=== PATIENT | female | born 1975 | race Caucasian/White ===

== ENCOUNTER 2016-10-07 23:26 | Emergency (ER) | payer SELFPAY ==
[~2016-10-07] VITALS: Ht 167.6 cm; Wt 81.6 kg
[2016-10-08] VITALS: BP 142/72
[2016-10-08] MEDS ORDERED: LORAZEPAM 1 MG TABLET. PO ONE
[2016-10-08] MEDS ORDERED: HYDR25TA PO (00:51)
--- NOTE | 2016-10-08 00:52 | PHYS DOC ---
Past Medical History Past Medical History: Anxiety Past Surgical History: No Surgical History Alcohol Use: None Drug Use: None Adult General Chief Complaint Chief Complaint: ANXIETY/PANIC ATTACK HPI HPI 40 yo F presenting to the ED for anxiety tonight. she reports taking xanax with moderate improvement. She denies chest pain shortness of breath. She feels mildly anxious. Onset tonight Location generalized Duration intermittent Alleviated was Xanax No specific timing present. Review of Systems Review of Systems ROS negative for chest pain shortness of breath nausea vomiting abdominal pain. All other review of systems is negative unless otherwise noted in history of present illness. Current Medications Current Medications Current Medications Medications (Trade) Dose Ordered Sig/Delisa Start Time Stop Time Status Last Admin Dose Admin Lorazepam (Ativan) 1 mg 1X ONCE 10/08/16 00:00 10/08/16 00:01 DC 10/07/16 23:55 1 MG Allergies Allergies Allergies Coded Allergies Type Severity Reaction Last Updated Verified No Known Drug Allergies 10/07/16 No Physical Exam Physical Exam Constitutional: Well developed, well nourished, no acute distress, non-toxic appearance. Patient feels mildly anxious. She is breathing comfortably in the exam room. HENT: Normocephalic, atraumatic, bilateral external ears normal, oropharynx moist, no oral exudates, nose normal. [] Eyes: PERRLA, EOMI, conjunctiva normal, no discharge. Neck: Normal range of motion, no tenderness, supple, no stridor. [] Cardiovascular:Heart rate regular rhythm, no murmur Lungs & Thorax: Bilateral breath sounds clear to auscultation [] Abdomen: Bowel sounds normal, soft, no tenderness, no masses, no pulsatile masses. [] Skin: Warm, dry, no erythema, no rash. Back: No tenderness, no CVA tenderness. [] Extremities: No tenderness, no cyanosis, no clubbing, ROM intact, no edema. Neurologic: Alert and oriented X 3, normal motor function, normal sensory function, no focal deficits noted. [] Psychologic: Affect normal, judgement normal, mood normal. [] Current Patient Data Vital Signs Vital Signs Date Time Temp Pulse Resp B/P Pulse Ox O2 Delivery O2 Flow Rate FiO2 10/08/16 00:00 90 24 142/72 96 Room Air 10/07/16 23:26 98.1 98.1 EKG EKG [] Radiology/Procedures Radiology/Procedures [] Course & Med Decision Making Course & Med Decision Making Pertinent Labs and Imaging studies reviewed. (See chart for details) [] 40-year-old female presenting to the emergency department today with a panic attack. On evaluation the patient was mildly anxious. She was in no distress. Vital signs showed a normal heart rate afebrile. Mild hypertension likely related to the patient's moving around and the hospital gurney and anxiousness. Respiratory rate increased as well secondary to anxiety. Physical exam was unremarkable otherwise. Patient was given Ativan in the emergency department which improved her symptoms. On reevaluation she is breathing comfortably and not in any distress. She was subsequently discharged home to follow up with her PCP over the next few days. She was asymptomatic upon second evaluation. Dragon Disclaimer Dragon Disclaimer This electronic medical record was generated, in whole or in part, using a voice recognition dictation system. Departure Departure Impression: Primary Impression: Anxiety attack Disposition: HOME, SELF-CARE Condition: STABLE Referrals: NO PCP (PCP) CORTEZ PINA MD Patient Instructions: Anxiety and Panic Attacks, Lxen-by-Fell Additional Instructions: Follow-up with : [facility] Address: [address] [place] [address] Thank you for allowing us to participate in your care today. Followup with your primary care physician in 3 days if your symptoms do not improve. If you do not have a primary care provider you can ask for a list of our primary care providers. Return to the emergency department you have any new or concerning findings. This should be evaluated by the primary care physician and any necessary consulting services for continued management within a few days after discharge. Return to emergency room if you have any new or concerning symptoms including but not limited to fever, chills, nausea, vomiting, intractable pain, any new rashes, chest pain, shortness of air, uncontrolled bleeding, difficulty breathing, and/or vision loss. You may have been prescribed medication that can change in your level of thinking and ability to operate machinery. These medications include hydrocodone and Ativan. Also, Benadryl has been known to do this as well. Be sure to check with your pharmacist and ask if the medications you've prescribed can affect your level of consciousness. I recommend not operating heavy machinery or driving while on medication such as these. Scripts Hydroxyzine Hcl 25 Mg Aakspn66 Mg PO PRN QHS PRN AGITATION #5 TAB Prov:ANTONIETTA NULL MD 10/08/16 ANTONIETTA NULL MD Oct 08, 2016 00:52
== END 2016-10-08 01:05 | disposition home or self-care (01) ==
LOC: ER 23:26
DX: F41.0 Panic disorder [episodic paroxysmal anxiety] (principal)
CPT/HCPCS: 99284

== ENCOUNTER 2017-03-26 12:09 | Emergency (ER) | payer MEDICAID, OTHER ==
[~2017-03-26] VITALS: Ht 167.6 cm; Wt 72.6 kg
[~2017-03-26 12:09] MED LIST: HYDR25TA PO
--- NOTE | 2017-03-26 13:12 | PHYS DOC ---
Past Medical History Past Medical History: Anxiety, Other Additional Past Medical Histor: PANIC ATTACKS Past Surgical History: No Surgical History Alcohol Use: None Drug Use: None Adult General Chief Complaint Chief Complaint: ANXIETY/PANIC ATTACK HPI HPI Patient is a 41 year old female who drove herself to the ED with a complaint of anxiety. She has had 2 panic attacks today at work. Patient states she has a history of panic attacks and anxiety. She does follow with a primary care physician and a counselor both in [place] for this diagnosis. She is on medications and she has not run out of her medications. She is using them as directed. She states that "my project engineering manager is a mean hateful person" and she has had interpersonal problems with her manager wealth management. She works as an tax revenue officer. She left work at lunch today and came to the ED. Since she has been resting in the room waiting to see me, the patient has been feeling much better without medication or other intervention. Meds Lexapro 40 mg daily, Xanax 1 mg 3 times a day when necessary for the last [address] Drummond Counselor Edwin Willard Review of Systems Review of Systems Constitutional: Denies fever or chills [] Eyes: Denies change in visual acuity, redness, or eye pain [] HENT: Denies nasal congestion or sore throat [] Respiratory: Denies cough or shortness of breath [] Cardiovascular: Denies chest pain GI: Denies abdominal pain, nausea, vomiting, bloody stools or diarrhea [] : Denies dysuria or hematuria [] Musculoskeletal: Denies back pain or joint pain [] Integument: Denies rash or skin lesions [] Neurologic: Denies headache, focal weakness or sensory changes [] Allergies Allergies Allergies Coded Allergies Type Severity Reaction Last Updated Verified No Known Drug Allergies 10/07/16 No Physical Exam Physical Exam Constitutional: Well developed, well nourished, no acute distress, non-toxic appearance. When I saw her, blood pressure 139/99, sat 94%, heart rate 79 HENT: Normocephalic, atraumatic, bilateral external ears normal, nose normal. [ ] Eyes: conjunctiva normal, no discharge. [] Neck: Normal range of motion, no stridor. [] Cardiovascular:Heart rate regular rhythm, no murmur [] Lungs & Thorax: Bilateral breath sounds clear to auscultation [] Skin: Warm, dry, no erythema, no rash. [] Extremities: No tenderness, no cyanosis, no clubbing, ROM intact, no edema. [] Neurologic: Alert and oriented X 3, normal motor function, normal sensory function, no focal deficits noted. [] Current Patient Data Vital Signs Vital Signs Date Time Temp Pulse Resp B/P (MAP) Pulse Ox O2 Delivery O2 Flow Rate FiO2 03/26/17 13:20 88 16 122/81 (95) 95 Room Air 03/26/17 12:20 98.4 98.4 EKG EKG [] Radiology/Procedures Radiology/Procedures [] Course & Med Decision Making Course & Med Decision Making Pertinent Labs and Imaging studies reviewed. (See chart for details) 41-year-old female with a history of panic attacks and anxiety who comes in with the complaint of exacerbation. The patient is already feeling better without treatment. We had quite a long talk about stimulants including caffeine and nicotine, I encouraged her to limit those. She does have a counselor and she has some good strategies in place to deal with her anxiety. She feels comfortable with discharge and has follow-up in place as well as medications at home. See instructions for plan. [] Dragon Disclaimer Dragon Disclaimer This electronic medical record was generated, in whole or in part, using a voice recognition dictation system. Departure Departure Impression: Primary Impression: Anxiety attack Disposition: 01 HOME, SELF-CARE Condition: STABLE Referrals: NO PCP (PCP) Patient Instructions: Anxiety and Panic Attacks, [id number] Additional Instructions: As we discussed, continue following up with your primary care physician and counselor as you are doing. As we discussed, try to limit your use of stimulating substances including caffeine and nicotine, which can contribute to your bodies feeling of anxiety by increasing your blood pressure and pulse. Today, drink plenty of fluids, eat a healthy lunch, try to get some moderate exercise outside in the fresh air and sunshine, get a good night sleep. MILLA RO MD Mar 26, 2017 13:12
[2017-03-26 13:20] VITALS: BP 122/81
== END 2017-03-26 13:27 | disposition home or self-care (01) ==
LOC: ER 12:09
DX: F41.9 Anxiety disorder, unspecified (principal); F41.0 Panic disorder [episodic paroxysmal anxiety]
CPT/HCPCS: 99284-25

== ENCOUNTER 2018-02-25 18:18 | Emergency (ER) | payer OTHER ==
[2018-02-25 18:56] LABS: ADD MAN DIFF? NO
[2018-02-25 18:59] LABS: BASO # 0.1 x10^3/uL (0.0-0.2); BASO % 1 % (0-3); EOS # 0.2 x10^3/uL (0.0-0.7); EOS % 2 % (0-3); HEMATOCRIT 40.5 % (36.0-47.0); HEMOGLOBIN 14.2 g/dL (12.0-15.5); LYMPH # 3.1 x10^3/uL (1.0-4.8); LYMPH % 38 % (24-48); MEAN CORPUSCULAR HEMOGLOBIN 32 pg (25-35); MEAN CORPUSCULAR HGB CONC 35 g/dL (31-37); MEAN CORPUSCULAR VOLUME 91 fL (79-100); MONO # 0.6 x10^3/uL (0.0-1.1); MONO % 7 % (0-9); NEUT # 4.2 x10^3uL (1.8-7.7); NEUT % 52 % (31-73); PLATELET COUNT 267 x10^3/uL (140-400); RED BLOOD COUNT 4.47 x10^6/uL (3.50-5.40); RED CELL DISTRIBUTION WIDTH 13.6 % (11.5-14.5); WHITE BLOOD COUNT 8.2 x10^3/uL (4.0-11.0)
[2018-02-25 19:14] LABS: ANION GAP 10 (6-14); BLOOD UREA NITROGEN 13 mg/dL (7-20); BUN/CREATININE RATIO 14 (6-20); CALCIUM 8.8 mg/dL (8.5-10.1); CARBON DIOXIDE 30 mmol/L (21-32); CHLORIDE 107 mmol/L (98-107); CREATININE 0.9 mg/dL (0.6-1.0); GFR 68.3; GLUCOSE 123 mg/dL (70-99); POTASSIUM 3.2 mmol/L (3.5-5.1); SODIUM 147 mmol/L (136-145)
[2018-02-25 19:16] LABS: ALBUMIN 3.2 g/dL (3.4-5.0); ALK PHOS 107 U/L (46-116); ALT (SGPT) 43 U/L (14-59); AST (SGOT) 24 U/L (15-37); TOTAL BILIRUBIN 0.3 mg/dL (0.2-1.0); TOTAL PROTEIN 6.4 g/dL (6.4-8.2)
[2018-02-25] MEDS: MORPHINE SULFATE 4 MG/ML DISP.SYRIN. IV ×2 (19:30→20:07)
[2018-02-25] MEDS ORDERED: CONTRAST GIVEN. MC (19:30)
[2018-02-25] MEDS: IOHEXOL 300 MG/ML 100ML VIAL. IV (19:31)
[2018-02-25 20:29] LABS: BILIRUBIN,URINE NEGATIVE (NEG); CLARITY,URINE CLEAR; COLOR,URINE YELLOW; GLUCOSE,URINE NEGATIVE (NEG); NITRITE,URINE NEGATIVE (NEG); PROTEIN,URINE NEGATIVE (NEG-TRACE); UROBILINOGEN,URINE 0.2 mg/dL (0.2 mg/dL)
[2018-02-25 20:36] LABS: BACTERIA,URINE FEW /HPF (0-FEW); RBC,URINE 0 /HPF (0-2); SQUAMOUS EPITHELIAL CELL,UR MOD /LPF
== END 2018-02-25 21:16 | disposition home or self-care (01) ==
LOC: ER 18:18
DX: K62.5 Hemorrhage of anus and rectum (principal); R10.30 Lower abdominal pain, unspecified; R11.0 Nausea; Z90.49 Acquired absence of other specified parts of digestive tract; Z90.710 Acquired absence of both cervix and uterus; Z88.4 Allergy status to anesthetic agent
CPT/HCPCS: 36415; 74177; 80053; 81001; 85025; 87045; 96374; 96375; 96376; 99285-25; J2060; J2270; Q9967

== ENCOUNTER 2018-03-16 17:01 | Inpatient (IN) | payer OTHER ==
[2018-03-16 17:29] LABS: ADD MAN DIFF? NO
[2018-03-16 17:36] LABS: BASO % 1 % (0-3); EOS % 0 % (0-3); HEMATOCRIT 42.5 % (36.0-47.0); HEMOGLOBIN 14.8 g/dL (12.0-15.5); LYMPH # 2.1 x10^3/uL (1.0-4.8); LYMPH % 60 % (24-48); MEAN CORPUSCULAR HEMOGLOBIN 32 pg (25-35); MEAN CORPUSCULAR HGB CONC 35 g/dL (31-37); MEAN CORPUSCULAR VOLUME 91 fL (79-100); MONO # 0.2 x10^3/uL (0.0-1.1); MONO % 5 % (0-9); NEUT # 1.2 x10^3uL (1.8-7.7); NEUT % 34 % (31-73); PLATELET COUNT 153 x10^3/uL (140-400); RED BLOOD COUNT 4.69 x10^6/uL (3.50-5.40); RED CELL DISTRIBUTION WIDTH 13.3 % (11.5-14.5); WHITE BLOOD COUNT 3.6 x10^3/uL (4.0-11.0)
[2018-03-16] MEDS ORDERED: AMPICILLIN/SULBACTAM 3 GM in IV NORMAL SALINE 100ML 100 ML IV (17:45)
[2018-03-16 17:49] LABS: BILIRUBIN,URINE SMALL (NEG); CLARITY,URINE CLOUDY; COLOR,URINE AMBER; GLUCOSE,URINE NEGATIVE (NEG); NITRITE,URINE NEGATIVE (NEG); PH,URINE 5.5; PROTEIN,URINE 30 mg/dL (NEG-TRACE); UROBILINOGEN,URINE 0.2 mg/dL (0.2 mg/dL)
[2018-03-16 17:50] LABS: ALBUMIN 3.8 g/dL (3.4-5.0); ALBUMIN/GLOBULIN RATIO 1.2 (1.0-1.7); ALK PHOS 97 U/L (46-116); ALT (SGPT) 36 U/L (14-59); ANION GAP 13 (6-14); AST (SGOT) 36 U/L (15-37); BLOOD UREA NITROGEN 19 mg/dL (7-20); BUN/CREATININE RATIO 17 (6-20); CALCIUM 9.2 mg/dL (8.5-10.1); CARBON DIOXIDE 26 mmol/L (21-32); CHLORIDE 103 mmol/L (98-107); CREATININE 1.1 mg/dL (0.6-1.0); GFR 54.2; GLUCOSE 148 mg/dL (70-99); SODIUM 142 mmol/L (136-145); TOTAL BILIRUBIN 0.2 mg/dL (0.2-1.0)
[2018-03-16 17:52] LABS: TROPONINI < 0.017 ng/mL (0.000-0.055)
[2018-03-16 17:54] LABS: POTASSIUM 2.6 mmol/L (3.5-5.1)
[2018-03-16 18:00] LABS: BACTERIA,URINE MOD /HPF (0-FEW); RBC,URINE 0 /HPF (0-2); SQUAMOUS EPITHELIAL CELL,UR MOD /LPF
[2018-03-16 18:01] LABS: HYALINE CASTS, URINE MODERATE /HPF
[2018-03-16] MEDS: IV NORMAL SALINE 1000ML BAG 1,000 ML IV ×4 (18:29→20:48)
[2018-03-16] MEDS: POTASSIUM CHLORIDE 20 MEQ TABLET.ER. PO ×2 (18:29)
[2018-03-16 19:44] LABS: ISTAT CREATININE 0.9 mg/dL (0.6-1.1)
[2018-03-16] MEDS ORDERED: fentaNYL PF VIAL 100 MCG/2 ML VIAL IV ×2 (20:00)
[2018-03-16] MEDS ORDERED: ACETAMINOPHEN 325 MG TABLET. PO ×2 (20:00)
[2018-03-16] MEDS ORDERED: ONDANSETRON PF 4 MG/2 ML VIAL. IV ×2 (20:00)
[2018-03-16] MEDS: POTASSIUM CHLORIDE 10MEQ 100 ML IV ×4 (20:29→21:41)
[2018-03-16] MEDS: ALPRAZolam 1 MG TABLET PO ×2 (21:30)
[2018-03-16] MEDS: ZOLPIDEM 5 MG TABLET. PO ×2 (21:41)
[2018-03-16] MEDS ORDERED: ZOLPIDEM 5 MG TABLET. PO ×2 (21:45)
[2018-03-16] MEDS: CITALOPRAM 20 MG TABLET. PO ×2 (21:45)
[2018-03-17 05:34] LABS: BASO % 1 % (0-3); EOS % 1 % (0-3); HEMATOCRIT 35.4 % (36.0-47.0); HEMOGLOBIN 12.1 g/dL (12.0-15.5); LYMPH # 1.6 x10^3/uL (1.0-4.8); LYMPH % 71 % (24-48); MEAN CORPUSCULAR HEMOGLOBIN 32 pg (25-35); MEAN CORPUSCULAR HGB CONC 34 g/dL (31-37); MEAN CORPUSCULAR VOLUME 92 fL (79-100); MONO # 0.1 x10^3/uL (0.0-1.1); MONO % 5 % (0-9); NEUT # 0.5 x10^3uL (1.8-7.7); NEUT % 23 % (31-73); PLATELET COUNT 114 x10^3/uL (140-400); RED BLOOD COUNT 3.84 x10^6/uL (3.50-5.40); RED CELL DISTRIBUTION WIDTH 13.7 % (11.5-14.5); WHITE BLOOD COUNT 2.3 x10^3/uL (4.0-11.0)
[2018-03-17 05:49] LABS: ADD MAN DIFF? YES
[2018-03-17 06:01] LABS: ALBUMIN 2.6 g/dL (3.4-5.0); ALBUMIN/GLOBULIN RATIO 0.9 (1.0-1.7); ALK PHOS 81 U/L (46-116); ALT (SGPT) 40 U/L (14-59); ANION GAP 7 (6-14); AST (SGOT) 43 U/L (15-37); BLOOD UREA NITROGEN 14 mg/dL (7-20); BUN/CREATININE RATIO 23 (6-20); CALCIUM 7.7 mg/dL (8.5-10.1); CARBON DIOXIDE 26 mmol/L (21-32); CHLORIDE 110 mmol/L (98-107); CREATININE 0.6 mg/dL (0.6-1.0); GFR 109.1; GLUCOSE 95 mg/dL (70-99); POTASSIUM 3.5 mmol/L (3.5-5.1); SODIUM 143 mmol/L (136-145); TOTAL BILIRUBIN 0.1 mg/dL (0.2-1.0); TOTAL PROTEIN 5.4 g/dL (6.4-8.2)
[2018-03-17] MEDS: CITALOPRAM 20 MG TABLET. PO ×2 (08:52)
[2018-03-17] MEDS: HYDROcodone/APAP 10/325 1 TAB TABLET PO ×4 (08:53→17:40)
[2018-03-17] MEDS: ALPRAZolam 1 MG TABLET PO ×4 (08:53→13:54)
[2018-03-17] MEDS ORDERED: ALPRAZolam 1 MG TABLET PO ×2 (09:00)
[2018-03-17] MEDS ORDERED: ONDANSETRON PF 4 MG/2 ML VIAL. IV ×2 (12:30)
[2018-03-17] MEDS ORDERED: hydrALAZINE 20 MG/ML VIAL. IVP ×2 (12:30)
[2018-03-17] MEDS ORDERED: ACETAMINOPHEN 325 MG TABLET. PO ×2 (12:30)
[2018-03-17] MEDS ORDERED: MORPHINE SULFATE 2 MG/ML DISP.SYRIN. IV ×2 (12:30)
[2018-03-17] MEDS ORDERED: DOCUSATE SODIUM 100 MG CAPSULE. PO ×2 (12:30)
[2018-03-17 12:31] LABS: % BANDS 4 % (0-9); % EOS 1 % (0-5); % MONOS 3 % (0-10); % SEGS 14 % (35-66); PLT ESTIMATE DECREASED (ADEQUATE)
[2018-03-17 12:33] LABS: % ATYL 1 % (0-0); % LYMPHS 77 % (24-48)
[2018-03-17] MEDS: traMADol 50 MG TABLET PO ×2 (13:54)
[2018-03-17] MEDS: POTASSIUM CHLORIDE 20 MEQ TABLET.ER. PO ×2 (14:30)
[2018-03-17 14:49] LABS: MAGNESIUM 1.8 mg/dL (1.8-2.4)
[2018-03-17] MEDS: ENOXAPARIN 40 MG/0.4 ML SYRINGE. SQ ×2 (15:00)
[2018-03-17] MEDS: MAGNESIUM SULFATE 2GM 50 ML IV ×2 (17:00)
[2018-03-17] MEDS ORDERED: NON FORMULARY ITEM (Zolpidem Tartrate (Ambien) 1 TAB) PO ×2 (21:00)
== END 2018-03-17 18:25 | disposition home or self-care (01) | DRG 640 ==
LOC: 5 NORTH 20:45 → ER 17:01 → 5 NORTH 19:50
DX: E87.6 Hypokalemia (principal); R42 Dizziness and giddiness (principal); N17.0 Acute kidney failure with tubular necrosis; F41.9 Anxiety disorder, unspecified; I42.9 Cardiomyopathy, unspecified; D72.819 Decreased white blood cell count, unspecified; F41.0 Panic disorder [episodic paroxysmal anxiety]; N17.9 Acute kidney failure, unspecified; F41.1 Generalized anxiety disorder; I49.3 Ventricular premature depolarization; Z82.49 Family history of ischemic heart disease and other diseases of the circulatory system; Z90.710 Acquired absence of both cervix and uterus; Z88.8 Allergy status to other drugs, medicaments and biological substances; Z90.49 Acquired absence of other specified parts of digestive tract
CPT/HCPCS: 36415; 71045; 80053; 81001; 82565; 83735; 84484; 85007; 85025; 93005; 93306; 96361; 96365; 96366; 96374; 96375; 96376; 99285; 99285-25; G0378; G0379; J2060; J3480; J7030